=== PATIENT | male | born 1930 | race Caucasian/White ===

== ENCOUNTER → 2017-06-11 | Outpatient (CLI) | payer MEDICARE ==
[~2017-06-11] MED LIST: MULT-208 PO; PROAIR HFA8.5 GM IH
--- NOTE | 2017-06-11 14:25 | KCIC ---
CHEST PA LATERAL History: Chronic cough for 3 or 4 weeks.. Comparison: May 05, 2015. Findings: Cardiomediastinal silhouette is within normal limits. Expansion of both lungs compatible with emphysema. There are coarse opacities in both lungs, compatible with scarring, similar to the prior study. No new dense lobar airspace consolidation is identified. No pneumothorax identified. Blunting of costophrenic angles is likely due to the air trapping. No large effusion. Impression: No significant change. No evidence of active airspace consolidation. Electronically signed by: Jerome Leonard MD (06/11/2017 2:22 PM) [id number]
== END | disposition home or self-care (01) ==
LOC: KCIC 13:35
PROVIDERS: ATTEND Family Medicine
DX: J43.8 Other emphysema (principal); Z87.891 Personal history of nicotine dependence
CPT/HCPCS: 71020